=== PATIENT | female | born 1975 | race Caucasian/White ===

== ENCOUNTER 2017-02-12 13:54 | Emergency (ER) | payer MEDICAID ==
[~2017-02-12] VITALS: Ht 157.5 cm; Wt 88.5 kg
[2017-02-12 14:19] VITALS: Ht 157.5 cm; Wt 88.5 kg
[2017-02-12] MEDS ORDERED: HYDROCODONE/APAP (5/325) TAB PO ONE (15:30)
[2017-02-12 15:44] LABS: BASOPHILS % 0.4 % (0.0-2.0); EOSINOPHILS # 0.4 10^3/ul (0.0-0.5); EOSINOPHILS % 4.1 % (0.0-7.0); HEMATOCRIT 37.4 % (37.0-47.0); HEMOGLOBIN 12.5 g/dl (12.0-16.0); LYMPHOCYTES # 2.4 10^3/ul (0.8-2.9); LYMPHOCYTES % 24.5 % (15.0-51.0); MEAN CORPUSCULAR HEMOGLOBIN 30.7 pg (29.0-33.0); MEAN CORPUSCULAR HGB CONC 33.4 g/dl (32.0-37.0); MEAN CORPUSCULAR VOLUME 91.9 fl (82.0-101.0); MEAN PLATELET VOLUME 10.3 fl (7.4-10.4); MONOCYTE # 0.6 10^3/ul (0.3-0.9); NEUTROPHIL # 6.4 10^3/ul (1.6-7.5); NEUTROPHILS % 64.6 % (39.0-77.0); PLATELET COUNT 331 10^3/UL (140-415); RED BLOOD COUNT 4.07 10^6/ul (4.20-5.40); RED CELL DISTRIBUTION WIDTH 13.7 % (11.5-14.5)
[2017-02-12 15:55] LABS: ADD UMIC YES; UR ASCORBIC ACID NEGATIVE (NEGATIVE); UR BACTERIA FEW /HPF (NONE SEEN); UR BILIRUBIN (Dip) NEGATIVE (NEGATIVE); UR BLOOD (Dip) 2+ mg/dL (NEGATIVE); UR CLARITY SLIGHTLY CLOUDY (CLEAR); UR COLOR YELLOW (YELLOW); UR GLUCOSE (Dip) NEGATIVE (NEGATIVE); UR KETONES (Dip) NEGATIVE (NEGATIVE); UR LEUKOCYTE ESTERASE (Dip) TRACE Leu/ul (NEGATIVE); UR MUCUS FEW /HPF (NONE SEEN); UR NITRITE (Dip) NEGATIVE (NEGATIVE); UR RBC 2 /HPF (0-5); UR SPECIFIC GRAVITY (Dip) 1.013 (1.003-1.030); UR SQUAMOUS EPITHELIAL CELL FEW /HPF (FEW); UR TOTAL PROTEIN (Dip) NEGATIVE (NEGATIVE); UR UROBILINOGEN (Dip) NEGATIVE (NEGATIVE)
--- NOTE | 2017-02-12 16:33 | RADRPT ---
PROCEDURE: ULTRASOUND EVALUATION OF THE FEMALE PELVIS: CLINICAL INDICATION: 41 years of age, female. Pelvic pain . COMPARISON: None available. TECHNIQUE: Real-time sonographic images of the pelvis were obtained transabdominally and transvagina lly utilizing mahmood scale, color, and Doppler imaging. FINDINGS: LMP: January 31, 2017 Uterus: Appearance: Normal. Position: Anteverted Size: 9.1 x 4.9 x 6.1 cm. (Volume 142 mL) Endometrial stripe: 1.2 cm Right ovary and adnexa: Size: 2 x 1 x 1.7 cm. (Volume 1.7 mL) Appearance: Normal morphology. No masses. Arterial flow present. Left ovary and adnexa: Size: 2.7 x 1.9 x 2.3 cm. (Volume 6.4 mL) Appearance: Normal morphology. No masses. There is a mildly complex follicle that is likely hemorrha gic and measures 1.5 cm. It contains internal septations without internal color flow. Arterial flow present. Free fluid: None. IMPRESSION: Normal ultrasound evaluation of the female pelvis. There is a 1.5 cm hemorrhagic follicle in the lef t ovary. Negative for free fluid. RPTAT: HCTS Physician Caleb Date Time Electronically viewed and signed by Physician Caleb on 02/12/2017 16:33 /
--- NOTE | 2017-02-12 16:43 | ERD ---
ER Documentation Chief Complaint Date/Time DATE: 02/12/17 TIME: 16:36 Chief Complaint Complains of pelvic pain x 2 days HPI This is a 41-year-old female who presents to the emergency department today complaining of pelvic pain for the past month and worse over the past 2 days. States she does have some dysuria. States her last menstrual cycle was last month. She has not taken any medication for the pain because she did not have any at home and was not sure what to take. Denies any fevers or chills. ROS All systems reviewed and are negative except as per history of present illness. Medications Home Meds Active Scripts Acetaminophen* (Tylophen*) 500 Mg Capsule, 1 CAP PO Q6H Y for PAIN AND OR ELEVATED TEMP, #30 CAP Prov:JAUN RODRIGUEZ PA-C 02/12/17 Naproxen* (Naprosyn*) 500 Mg Tablet, 500 MG PO BID Y for PAIN AND/OR INFLAMMATION, #30 TAB Prov:JAUN RODRIGUEZ PA-C 02/12/17 Clotrimazole* (Clotrimazole* AF) 1% - 30 Gm Cream.gm., 1 APPLIC TOP BID for 7 Days, #1 TUB Prov:JAUN RODRIGUEZ PA-C 02/12/17 Allergies Allergies: Coded Allergies: No Known Allergy (Unverified , 02/12/17) PMhx/Soc Medical and Surgical Hx: pt denies Medical Hx, pt denies Surgical Hx Hx Alcohol Use: No Hx Substance Use: No Hx Tobacco Use: No Smoking Status: Never smoker Physical Exam Vitals Vital Signs Date Time Temp Pulse Resp B/P Pulse Ox O2 Delivery O2 Flow Rate FiO2 02/12/17 14:19 98.2 72 20 124/77 98 Physical Exam Const: obese, NAD Head: Atraumatic Eyes: Normal Conjunctiva ENT: Normal External Ears, Nose and Mouth. Neck: Full range of motion..~ No meningismus. Resp: Clear to auscultation bilaterally Cardio: Regular rate and rhythm, no murmurs Abd: Soft, pelvic tenderness, non distended. Normal bowel sounds. No tenderness at McBurney's : Vaginal exam shows no purulent discharge. There is evidence of mild yeast. Mild cervical motion tenderness Skin: No petechiae or rashes Back: No midline or flank tenderness Ext: No cyanosis, or edema Neur: Awake and alert Psych: Normal Mood and Affect Result Diagram: 02/12/17 1520 Results 24 hrs Laboratory Tests Test 02/12/17 15:20 White Blood Count 10.010^3/ul Red Blood Count 4.0710^6/ul Hemoglobin 12.5g/dl Hematocrit 37.4% Mean Corpuscular Volume 91.9fl Mean Corpuscular Hemoglobin 30.7pg Mean Corpuscular Hemoglobin Concent 33.4g/dl Red Cell Distribution Width 13.7% Platelet Count 04373^3/UL Mean Platelet Volume 10.3fl Neutrophils % 64.6% Lymphocytes % 24.5% Monocytes % 6.0% Eosinophils % 4.1% Basophils % 0.4% Nucleated Red Blood Cells % 0.0/100WBC Neutrophils # 6.410^3/ul Lymphocytes # 2.410^3/ul Monocytes # 0.610^3/ul Eosinophils # 0.410^3/ul Basophils # 0.010^3/ul Nucleated Red Blood Cells # 0.010^3/ul Urine Color YELLOW Urine Clarity SLIGHTLY CLOUDY Urine pH 5.0 Urine Specific [place] 1.013 Urine Ketones NEGATIVEmg/dL Urine Nitrite NEGATIVEmg/dL Urine Bilirubin NEGATIVEmg/dL Urine Urobilinogen NEGATIVEmg/dL Urine Leukocyte Esterase TRACELeu/ul Urine Microscopic RBC 2/HPF Urine Microscopic WBC 4/HPF Urine Squamous Epithelial Cells FEW/HPF Urine Bacteria FEW/HPF Urine Mucus FEW/HPF Urine Hemoglobin 2+mg/dL Urine Glucose NEGATIVEmg/dL Urine Total Protein NEGATIVEmg/dl Current Medications Medications (Trade) Dose Ordered Sig/Spencer Route PRN Reason Start Time Stop Time Status Last Admin Dose Admin Acetaminophen/ Hydrocodone Bitart (Jerome (5/325)) 1 tab ONCE ONCE PO 02/12/17 15:30 02/12/17 15:31 DC 02/12/17 15:17 DIAGNOSTIC IMAGING REPORT Patient: DENI HENDERSON : 1975 Age: 41 Sex: F MR #: [id number] DOS: 02/12/17 0000 Ordering MD: JAUN RODRIGUEZ PA-C Location: [facility] Room/Bed: PROCEDURE: ULTRASOUND EVALUATION OF THE FEMALE PELVIS: CLINICAL INDICATION: 41 years of age, female. Pelvic pain . COMPARISON: None available. TECHNIQUE: Real-time sonographic images of the pelvis were obtained transabdominally and transvaginally utilizing mahmood scale, color, and Doppler imaging. FINDINGS: LMP: January 31, 2017 Uterus: Appearance: Normal. Position: Anteverted Size: 9.1 x 4.9 x 6.1 cm. (Volume 142 mL) Endometrial stripe: 1.2 cm Right ovary and adnexa: Size: 2 x 1 x 1.7 cm. (Volume 1.7 mL) Appearance: Normal morphology. No masses. Arterial flow present. Left ovary and adnexa: Size: 2.7 x 1.9 x 2.3 cm. (Volume 6.4 mL) Appearance: Normal morphology. No masses. There is a mildly complex follicle that is likely hemorrhagic and measures 1.5 cm. It contains internal septations without internal color flow. Arterial flow present. Free fluid: None. IMPRESSION: Normal ultrasound evaluation of the female pelvis. There is a 1.5 cm hemorrhagic follicle in the left ovary. Negative for free fluid. RPTAT: HCTS Physician Caleb Date Time Electronically viewed and signed by Physician Caleb on 02/12/2017 16: 33 CS/ CC: JAUN RODRIGUEZ PA-C Procedures/MDM This is a 41-year-old female presents the emergency department today complaining of pelvic pain for the past 2 days. I did obtain laboratory work as well as imaging. Laboratory workup shows no elevated white blood cell count. She is not anemic. Platelets are within normal limits. UA shows trace leukocyte esterase no there are 4 microscopic white blood cells. Urine was sent for gonorrhea or chlamydia test is negative. Pelvic ultrasound shows a normal ultrasound of the female pelvis. There is a 1.5 cm hemorrhagic follicle in the left ovary. Is negative for free fluid. There is arterial flow present in both ovaries. There are no masses. Patient has pelvic uncertain etiology however may be due to hemorrhagic cyst. She did have evidence of some mild yeast on vaginal exam I will give her a prescription for Clotrimazole. Patient had very mild tenderness with manual exam however she denies being sexually active and I have lower suspicion for PID. She is afebrile and otherwise well-appearing. She has no elevated white blood cell count. Patient was given Jerome here in the emergency department pain improved. She will be given a prescription for short course of Tylenol, Naprosyn for home. At this time the patient is stable for discharge and outpatient management. Patient should follow up with their PCP in the next 1-2 days. Did indicate that she would go to her clinic tomorrow. She is also given a list of community resources and allergy specialist. They may return to the emergency department sooner for any persistent or worsening of symptoms. Patient understood and agreed with the plan. Discussed patient with Dr. Freed and he is in agreement with the plan. Departure Diagnosis: Primary Impression: Pelvic pain Condition: JAUN Naqvi PA-C Feb 12, 2017 16:43
[2017-02-12] MEDS ORDERED: CLOT30CR24 TOP (17:36)
[2017-02-12] MEDS ORDERED: NAPR-260 PO (17:37)
[2017-02-12] MEDS ORDERED: ACET500C5 PO (17:39)
== END 2017-02-12 17:59 | disposition home or self-care (01) ==
LOC: FTE 13:54
DX: R10.2 Pelvic and perineal pain (principal); E66.9 Obesity, unspecified; Z68.35 Body mass index [BMI] 35.0-35.9, adult
CPT/HCPCS: 76830; 76856; 81001; 85025; 87591; Z7502; Z7610

== ENCOUNTER 2018-02-01 18:08 | Emergency (ER) | END 2018-02-01 20:21 | disposition home or self-care (01) ==

== ENCOUNTER 2018-10-14 11:17 | Emergency (ER) | payer MEDICAID ==
[~2018-10-14] VITALS: Ht 149.9 cm; Wt 81.0 kg
[~2018-10-14 11:17] MED LIST: ACET500C5 PO; CLOT30CR24 TOP; NAPR-985 PO
[2018-10-14 11:21] VITALS: BP 122/81; PULSE 89; RESP 17; Ht 149.9 cm; Wt 81.0 kg
[2018-10-14] MEDS ORDERED: OFLO5DRO7 LEFT EAR (11:47)
[2018-10-14] MEDS ORDERED: IBUP-1542 PO (11:47)
[2018-10-14] MEDS ORDERED: TRAM50TA2 PO (11:50)
--- NOTE | 2018-10-14 11:57 | ERD ---
ER Documentation Chief Complaint Chief Complaint left ear pain with mild fevers at home x 4 days HPI This is a 43-year-old female who presents to the ED complaining of left ear pain x4 days. Patient describes the pain as sharp and worse with palpation. She denies any trauma. Denies any associated fevers or chills. Denies any nausea or vomiting. Denies any ear discharge. Denies any difficulty hearing. Denies any history of ear infections. ROS All systems reviewed and are negative except as per history of present illness. Medications Home Meds Active Scripts Tramadol HCl (Tramadol HCl) 50 Mg Tablet, 50 MG PO Q6 PRN for PAIN, #10 TAB Prov:VALERI MORENOC 10/14/18 Ibuprofen* (Motrin*) 600 Mg Tab, 600 MG PO Q6H PRN for PAIN AND OR ELEVATED TEMP, #30 TAB Prov:VALERI MORENOC 10/14/18 Ofloxacin Otic (Ofloxacin Otic) 5 Ml Drops, 10 DROP LEFT EAR DAILY for 7 Days, #1 BOTTLE Prov:VALERI MORENOC 10/14/18 Naproxen* (Naprosyn*) 500 Mg Tablet, 500 MG PO BID PRN for PAIN AND/OR INFLAMMATION, #30 TAB Prov:RIK LEA PA-C 02/01/18 Acetaminophen* (Tylophen*) 500 Mg Capsule, 1 CAP PO Q6H PRN for PAIN AND OR ELEVATED TEMP, #30 CAP Prov:JAUN RODRIGUEZ PA-C 02/12/17 Naproxen* (Naprosyn*) 500 Mg Tablet, 500 MG PO BID PRN for PAIN AND/OR INFLAMMATION, #30 TAB Prov:JAUN RODRIGUEZ PA-C 02/12/17 Clotrimazole* (Clotrimazole* AF) 1% - 30 Gm Cream.gm., 1 APPLIC TOP BID for 7 Days, #1 TUB Prov:JAUN RODRIGUEZ PA-C 02/12/17 Allergies Allergies: Coded Allergies: No Known Allergy (Unverified , 02/12/17) PMhx/Soc Hx Alcohol Use: No Hx Substance Use: No Hx Tobacco Use: No FmHx Family History: No diabetes Physical Exam Vitals Vital Signs Date Temp Pulse Resp B/P (MAP) Pulse Ox O2 O2 Flow FiO2 Time Delivery Rate 10/14/18 98.3 89 17 122/81 98 11:21 (95) Physical Exam Const: No acute distress Head: Atraumatic Eyes: Normal Conjunctiva ENT: + Left external auditory canal erythematous and edematous. Pain with manipulation of the pinna. Mild posterior navicular tenderness to palpation. No TM erythema. No TM perforation. Right TM and external auditory canal normal. Neck: Full range of motion. No meningismus. Resp: Clear to auscultation bilaterallyal bowel sounds Skin: No petechiae or rashes Neur: Awake and alert Psych: Normal Mood and Affect Procedures/MDM MEDICAL DECISION MAKIN-year-old otherwise healthy female presents with atraumatic left ear pain. Physical exam consistent with acute otitis externa. No clinical evidence of otitis media, malignant otitis externa, TM perforation, mastoiditis or meningitis. Will treat with topical antibiotics as well as pain medications per patient request. Recommended to follow-up with her regular doctor or County within the week. Strict return precautions were discussed. PRESCRIPTIONS: Ibuprofen, ofloxacin, tramadol SPECIALIST FOLLOW UP RECOMMENDED: None Patient has been advised to follow up with primary care in 1-2 days. Departure Diagnosis: Primary Impression: Otitis externa Otitis externa type: unspecified type Chronicity: acute Laterality: left Qualified Codes: H60.502 - Unspecified acute noninfective otitis externa, left ear Condition: Stable Patient Instructions: External Ear Infection (Adult) Referrals: [facility] YOU HAVE RECEIVED A MEDICAL SCREENING EXAM AND THE RESULTS INDICATE THAT YOU DO NOT HAVE A CONDITION THAT REQUIRES URGENT TREATMENT IN THE EMERGENCY DEPARTMENT. FURTHER EVALUATION AND TREATMENT OF YOUR CONDITION CAN WAIT UNTIL YOU ARE SEEN IN YOUR DOCTORS OFFICE WITHIN THE NEXT 1-2 DAYS. IT IS YOUR RESPONSIBILITY TO MAKE AN APPOINTMENT FOR [facility]. IF YOU HAVE A PRIMARY DOCTOR --you should call your primary doctor and schedule an appointment IF YOU DO NOT HAVE A PRIMARY DOCTOR YOU CAN CALL OUR PHYSICIAN REFERRAL HOTLINE AT IF YOU CAN NOT AFFORD TO SEE A PHYSICIAN YOU CAN CHOSE FROM THE FOLLOWING [facility] [address] [facility]. [facility] [address] [facility] [address] [facility] [address] [facility] [address] [facility]. [facility] [address] [facility]. [facility]. [address] [facility]. [facility] YOU HAVE RECEIVED A MEDICAL SCREENING EXAM AND THE RESULTS INDICATE THAT YOU DO NOT HAVE A CONDITION THAT REQUIRES URGENT TREATMENT IN THE EMERGENCY DEPARTMENT. FURTHER EVALUATION AND TREATMENT OF YOUR CONDITION CAN WAIT UNTIL YOU ARE SEEN IN YOUR DOCTORS OFFICE WITHIN THE NEXT 1-2 DAYS. IT IS YOUR RESPONSIBILITY TO MAKE AN APPOINTMENT FOR [facility]-UP CARE. IF YOU HAVE A PRIMARY DOCTOR --you should call your primary doctor and schedule and appointment IF YOU DO NOT HAVE A PRIMARY DOCTOR YOU CAN CALL OUR PHYSICIAN REFERRAL HOTLINE AT . IF YOU CAN NOT AFFORD TO SEE A PHYSICIAN YOU CAN CHOSE FROM THE FOLLOWING [facility] INSTITUTIONS: [address] [place], [place] [id number] [place] [address] [address] [place] [address] [facility] URGENT CARE/SPECIALTIES Additional Instructions: Paciente aconseja volver a Departamento de urgencias inmediatamente para sn pura nuevos o que empeoran . Paciente aconseja posteriores con el PCP en 1-2 keith. Si el paciente no tiene ninguna de atencin primaria pueden seguir con [facility] [place] [id number] [place] [address] o [facility] [address] [place] [id number] VALERI MORENO PA-C Oct 14, 2018 11:56
== END 2018-10-14 12:02 | disposition home or self-care (01) ==
LOC: FTE 11:17
DX: H60.502 Unspecified acute noninfective otitis externa, left ear (principal)
CPT/HCPCS: 99283